=== PATIENT | male | born 1975 | race American Indian/Alaskan Native ===

== ENCOUNTER 2017-07-18 00:24 | Emergency (ER) | payer OTHER ==
--- NOTE | 2017-07-18 02:06 | XRay Report ---
FINAL REPORT PROCEDURE: XR TIBIA FIBULA 2V RT TECHNIQUE: RIGHT tibia and fibula radiographs, AP and lateral views. CPT 13888 HISTORY: RIGHT LOWER LEG PAIN COMPARISON: No prior studies are available for comparison. FINDINGS: Fracture (s) and/or Dislocation(s): None . Joint space(s): Normal . Soft tissues: Normal . Bone mineralization: Normal . Foreign bodies: None . IMPRESSION: Normal Examination.
--- NOTE | 2017-07-18 02:07 | XRay Report ---
FINAL REPORT PROCEDURE: XR ELBOW 2V LT TECHNIQUE: LEFT elbow radiographs, including AP and lateral views. HISTORY: LEFT ELBOW PAIN COMPARISON: No prior studies are available for comparison. FINDINGS: Fracture (s) and/or Dislocation(s): None . Alignment: Normal . Joint space(s): Normal . Soft tissues: Normal . Bone mineralization: Normal . Foreign bodies: None . IMPRESSION: Normal Examination
--- NOTE | 2017-07-18 02:09 | XRay Report ---
FINAL REPORT PROCEDURE: XR SPINE CERVICAL 2-3V TECHNIQUE: Cervical spine radiographs, AP, lateral, and open-mouth odontoid views. CPT 23754 HISTORY: NECK / BACK PAIN COMPARISON: No prior studies are available for comparison. FINDINGS: Prevertebral soft tissues: Normal . Alignment: Normal . Vertebral body heights/Disk spaces: Normal . Fracture(s): None . Facets: Normal . Bone mineralization: Normal . IMPRESSION: Normal Examination
--- NOTE | 2017-07-18 02:35 | Cat Scan Report ---
FINAL REPORT PROCEDURE: CT HEAD/BRAIN WO CON TECHNIQUE: Computerized tomography of the head was performed without contrast material. HISTORY: HEAD PAIN / LOC COMPARISON: No prior studies are available for comparison. FINDINGS: Skull and scalp: Normal. Paranasal sinuses: Normal. Ventricles and subarachnoid spaces: Normal. Cerebrum: No evidence of hemorrhage, acute infarction or mass . Cerebellum and brainstem: No evidence of hemorrhage, acute infarction or mass. Vasculature: Normal. Comments: None. IMPRESSION: There is no evidence of an acute intracranial process
[2017-07-18 02:42] LABS: Basophils % (Auto) 0.5 % (0.0-1.8); Eosinophils % (Auto) 0.2 % (0.0-4.3); Mean Corpuscular HGB Conc 33 % (32-34); Mean Corpuscular Hemoglobin 29 pg (28-32); Mean Corpuscular Volume 87 fl (84-94); Platelet Count 301 K/mm3 (140-440); Red Blood Count 5.17 M/mm3 (3.65-5.03); Red Cell Distribution Width 14.3 % (13.2-15.2); White Blood Count 9.4 K/mm3 (4.5-11.0)
[2017-07-18 02:54] LABS: Alanine Aminotransferase 60 units/L (7-56); Albumin 4.3 g/dL (3.9-5); Alkaline Phosphatase 72 units/L (35-129); Amylase 49 units/L (27-131); Anion Gap 21 mmol/L; Blood Urea Nitrogen 11 mg/dL (9-20); Calcium 9.2 mg/dL (8.4-10.2); Carbon Dioxide 26 mmol/L (22-30); Chloride 91.1 mmol/L (98-107); Glucose 118 mg/dL (75-100); Lipase 26 units/L (13-60); Potassium 3.3 mmol/L (3.6-5.0); Sodium 135 mmol/L (137-145); Total Protein 8.5 g/dL (6.3-8.2)
[2017-07-18 03:05] LABS: INR 1.02 (0.87-1.13)
[2017-07-18 03:35] LABS: Bilirubin,Urine NEG (Negative); Blood,Urine NEG (Negative); Ketones,Urine NEG (Negative); Leukocyte Esterase,Urine NEG (Negative); Mucus,Urine FEW /HPF; Nitrite,Urine NEG (Negative)
[2017-07-18 08:02] VITALS: BP 147/90
[2017-07-18] MEDS ORDERED: ZOFRAN IM ONE (08:25)
[2017-07-18] MEDS ORDERED: MORPHINE IM ONE (08:25)
[2017-07-18] MEDS ORDERED: K-DUR PO ONE (08:31)
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
== END 2017-07-18 11:33 | disposition home or self-care (01) ==
LOC: ED 00:24
DX: S09.90XA Unspecified injury of head, initial encounter (principal); S16.1XXA Strain of muscle, fascia and tendon at neck level, initial encounter; S39.012A Strain of muscle, fascia and tendon of lower back, initial encounter; S50.01XA Contusion of right elbow, initial encounter; S50.02XA Contusion of left elbow, initial encounter; F32.9 Major depressive disorder, single episode, unspecified; N39.0 Urinary tract infection, site not specified; Y92.410 Unspecified street and highway as the place of occurrence of the external cause; I10 Essential (primary) hypertension; V89.2XXA Person injured in unspecified motor-vehicle accident, traffic, initial encounter; Y93.89 Activity, other specified; Y99.9 Unspecified external cause status
CPT/HCPCS: 36415; 70450; 72040; 72100; 73070; 73090; 73562; 73590; 80053; 81001; 82150; 83690; 85025; 85610; 85730; 93005; 93010; 96372; 99284; G0480; J2270; J2405; 80320